=== PATIENT | female | born 2000 | race African-American/Black ===

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

== ENCOUNTER 2020-10-05 16:25 | Emergency (ER) | payer MEDICAID ==
[~2020-10-05] VITALS: Ht 154.9 cm; Wt 66.0 kg
[2020-10-05 16:26] VITALS: BP 125/77
[2020-10-05] MEDS: TETRACAINE 0.5% OPHTH DROPS 4ML LEFTEYE ONE (17:30)
[2020-10-05] MEDS: FLUORESCEIN SODIUM 1MG/STRIP LEFTEYE ONE (17:30)
[2020-10-05] MEDS ORDERED: OFLO5DRO3 LEFTEYE (18:21)
== END 2020-10-05 18:37 | disposition home or self-care (01) ==
LOC: ER 16:25
DX: H10.32 Unspecified acute conjunctivitis, left eye (principal)
CPT/HCPCS: 99283

== ENCOUNTER 2020-12-26 12:24 | Emergency (ER) | payer MEDICAID ==
[~2020-12-26] VITALS: Ht 154.9 cm; Wt 67.0 kg
[~2020-12-26 12:24] MED LIST: OFLO5DRO3 LEFTEYE
[2020-12-26 12:35] VITALS: BP 126/84
[2020-12-26 15:30] LABS: BASOPHILS % 0.5 % (0.0-2.0); EOSINOPHILS % 0.3 % (0.0-5.0); HEMATOCRIT. 40.4 % (36.0-48.0); HEMOGLOBIN. 13.8 g/dL (12.0-16.0); LYMPHOCYTES % 23.4 % (20.0-50.0); MEAN CORPUSCULAR HEMOGLOBIN 30.9 pg (28.0-32.0); MEAN CORPUSCULAR VOLUME 90.1 fL (81.0-99.0); MEAN PLATELET VOLUME 8.6 fl (7.4-10.4); MONOCYTES % 5.7 % (2.0-8.0); NEUTROPHILS % 70.1 % (40.0-76.0); PLATELET 265 x1000/uL (130-400); RED BLOOD CELL COUNT 4.48 mill/uL (4.2-5.4); RED CELL DISTRIBUTION WIDTH 12.7 % (11.6-14.6)
[2020-12-26 15:38] LABS: CHLORIDE 106 mEq/L (98-107)
[2020-12-26 15:55] LABS: HCG SCREEN NEGATIVE
[2020-12-26] MEDS ORDERED: IMOD MT (17:22)
== END 2020-12-26 17:35 | disposition home or self-care (01) ==
LOC: ER 12:24
DX: R19.7 Diarrhea, unspecified (principal); Z20.822 Contact with and (suspected) exposure to COVID-19
CPT/HCPCS: 36415; 80048; 81025; 84703; 85025; 87426; 99283